=== PATIENT | female | born 1945 | race Caucasian/White ===

== ENCOUNTER → 2018-11-09 | Outpatient (CLI) | payer MEDICARE ==
[~2018-11-09] MED LIST: ALBUTEROL0.83 MG/ML IH; AMOXICILLIN 8751 TAB PO; ATROVENT I0.2 MG/1 M IH; DALIRESP500 MCG PO; DIFLUCAN 100MG100 MG PO; IPRATROPIUM BROM3 M1 IH; LASIX 80MG TABL80 MG PO; LEVAQUIN 750MG750 M1 PO; PREDNISONE20 MG PO; RT ADVAIR 228 DISKUS IH; RT SPIRIVA18 MCG IH
== END ==
LOC: COL.VAS 12:54
DX: Q21.1 Atrial septal defect (principal); I51.7 Cardiomegaly

== ENCOUNTER → 2020-03-27 | Outpatient (CLI) | payer MEDICARE | LOC: COL.VAS 11:44 | DX: I51.7 Cardiomegaly (principal) ==

== ENCOUNTER → 2021-03-27 | Outpatient (CLI) | payer MEDICARE | LOC: COL.RAD 12:28 | DX: J47.9 Bronchiectasis, uncomplicated (principal); R59.0 Localized enlarged lymph nodes; I51.7 Cardiomegaly; I27.21 Secondary pulmonary arterial hypertension; K80.20 Calculus of gallbladder without cholecystitis without obstruction ==

== ENCOUNTER → 2021-08-27 | Outpatient (CLI) | payer MEDICARE ==
[2021-08-27 21:10] LABS: IMMUNOGLOBULIN A 552 mg/dL (69-517); IMMUNOGLOBULIN G 1796 mg/dL (552-1631); IMMUNOGLOBULIN M, QUANTITATIVE 30 mg/dL (33-293)
[2021-08-28 16:52] LABS: ANA SCREEN with REFLEX Negative (Negative)
== END ==
LOC: COL.LAB 14:41
PROVIDERS: Physician Assistant
DX: J47.9 Bronchiectasis, uncomplicated (principal)